=== PATIENT | female | born 1970 | race American Indian/Alaskan Native ===

== ENCOUNTER → 2017-10-01 | Outpatient (CLI) | payer OTHER ==
--- NOTE | 2017-10-01 16:26 | Mammography Report ---
BILATERAL DIGITAL SCREENING MAMMOGRAM with CAD: 10/01/17 07:59:00 CLINICAL: Routine screening. COMPARISON:None available. FINDINGS: The breasts are heterogeneously dense, which may obscure small masses. Scattered bilateral largely punctate calcifications. Bilateral asymmetries require additional imaging.No architectural distortion or suspicious calcifications. IMPRESSION: Bilateral asymmetries requiring further workup. BI-RADS CATEGORY: 0 -- Additional Imaging Evaluation Required RECOMMENDATION: Recall for bilateral spot compression views and bilateral breast ultrasound if needed. ACR BI-RADS MAMMOGRAPHIC CODES: 0 = Needs additional imaging evaluation; 1 = Negative; 2 = Benign; 3 = Probably benign; 4 = Suspicious; 5 = Malignant; 6 = Known biopsy-proven malignancy COMMENT: 1. Dense breast tissue, i.e., adenosis, fibrocystic changes, etc., may obscure an underlying neoplasm. 2. Approximately 10% of cancers are not detected with mammography. 3. A negative mammography report should not delay biopsy if a clinically suspicious mass is present. COMMENT: Patient follow-up letters are generated via our [employer] application.
== END | disposition home or self-care (01) ==
LOC: MAMMO 07:59
PROVIDERS: ATTEND Advanced Practice Midwife
DX: Z12.31 Encounter for screening mammogram for malignant neoplasm of breast (principal)
CPT/HCPCS: 77067

== ENCOUNTER 2018-08-21 07:19 | Emergency (ER) | payer OTHER ==
[2018-08-21 07:33] VITALS: BP 143/84
--- NOTE | 2018-08-21 08:00 | Emergency Department Report ---
Minor Respiratory - HPI Chief Complaint: Upper Respiratory Infection Stated Complaint: GENERAL COLD Time Seen by Provider: 08/21/18 07:55 Duration: 4 Days Minor Respiratory: Yes Rhinorrhea, Yes Sore Throat, Yes Able to Tolerate Fluids, Yes Cough, Yes Chest Pain, Yes Fever, No Ear Pain, No Sick Contacts, No Hemoptysis, No Shortness of Breath Other History: 47-year-old female presents to the emergency room for a 4 day history of cold-like symptoms. Patient admits to sore throat chest pain from cough dizziness or any nose and nasal congestion. Patient reports to try taking TheraFlu severe cough. Patient reports she had a fever 102 last night. ED Review of Systems ROS: Stated complaint: GENERAL COLD Other details as noted in HPI Comment: All other systems reviewed and negative Constitutional: fever ENT: throat pain Respiratory: cough Cardiovascular: denies: chest pain, palpitations Endocrine: no symptoms reported Gastrointestinal: denies: abdominal pain, nausea, diarrhea Genitourinary: denies: urgency, dysuria, discharge Musculoskeletal: denies: back pain, joint swelling, arthralgia Skin: denies: rash, lesions Neurological: denies: headache, weakness, paresthesias Psychiatric: denies: anxiety, depression Hematological/Lymphatic: denies: easy bleeding, easy bruising ED Past Medical Hx - Past Medical History Hx Hypertension: Yes - Social History Smoking Status: Never Smoker - Medications Home Medications: Home Medications Medication Instructions Recorded Confirmed Last Taken Type Benzonatate [Tessalon Perles] 100 mg PO Q8HR #15 capsule 08/21/18 Unknown Rx Cetirizine HCl [Zyrtec 10mg tab] 10 mg PO QDAY #15 tablet 08/21/18 Unknown Rx Fluticasone [Flonase] 1 spray NS QDAY #1 bottle 08/21/18 Unknown Rx Ibuprofen [Motrin 800 MG tab] 800 mg PO Q8HR PRN #30 tablet 08/21/18 Unknown Rx Minor Respiratory Exam - Exam General: Vital signs noted. No distress. Alert and acting appropriately. HEENT: Yes Moist Mucous Membranes, No Pharyngeal Erythema, No Pharyngeal Exudates, No Rhinorrhea, No Conjuctival Injection, No Frontal Tenderness, No Maxillary Tenderness Neck: Yes Supple, No Adenopathy Lungs: Yes Good Air Exchange, No Wheezes, No Ronchi, No Stridor, No Cough, No Labored Respirations, No Retractions, No Use of Accessory Muscles, No Other Abnormal Lung Sounds Heart: Yes Regular, No Murmur Abdomen: Yes Normal Bowel Sounds, No Tenderness, No Peritoneal Signs Skin: No Rash, No Edema Neurologic: Alert and oriented, no deficits. Musculoskeletal: Unremarkable. ED Course Vital Signs 08/21/18 07:22 Temperature 98.1 F Pulse Rate 71 Respiratory 16 Rate Blood Pressure 143/84 O2 Sat by Pulse 100 Oximetry ED Medical Decision Making - Medical Decision Making Patient has been evaluated by this provider a cc. She to 47-year-old male, swelling cold-like symptoms. Patient was placed on Zyrtec's Tessalon Perles Flonase and ibuprofen. Patient is to follow up with her primary care provider. Critical care attestation.: If time is entered above; I have spent that time in minutes in the direct care of this critically ill patient, excluding procedure time. ED Disposition Clinical Impression: Allergic rhinitis Qualifiers: Allergic rhinitis trigger: unspecified Allergic rhinitis seasonality: unspecified Qualified Code(s): J30.9 - Allergic rhinitis, unspecified Disposition: DC- TO HOME OR SELFCARE Is pt being admited?: No Does the pt Need Aspirin: No Condition: Stable Instructions: Allergic Rhinitis (ED), Viral Syndrome (ED) Additional Instructions: Take medications as prescribed. Increase her fluid intake while taking medications. Follow up with her primary care provider if his symptoms persist or gets worse. Prescriptions: Fluticasone [Flonase] 1 spray NS QDAY #1 bottle Ibuprofen [Motrin 800 MG tab] 800 mg PO Q8HR PRN #30 tablet PRN Reason: Pain , Severe (7-10) Benzonatate [Tessalon Perles] 100 mg PO Q8HR #15 capsule Cetirizine HCl [Zyrtec 10mg tab] 10 mg PO QDAY #15 tablet Referrals: GARRISON BURCH MD [Primary Care Provider] - 3-5 Days Forms: Work/School Release Form(ED)
== END 2018-08-21 08:28 | disposition home or self-care (01) ==
LOC: ED 07:19
DX: J30.9 Allergic rhinitis, unspecified (principal); I10 Essential (primary) hypertension; Z79.899 Other long term (current) drug therapy
CPT/HCPCS: 99282

== ENCOUNTER 2020-06-24 10:24 | Emergency (ER) | payer OTHER ==
[2020-06-24 10:44] VITALS: BP 130/76
--- NOTE | 2020-06-24 11:21 | XRay Report ---
CHEST 2 VIEWS INDICATION / CLINICAL INFORMATION: sob. COMPARISON: None available. FINDINGS: SUPPORT DEVICES: None. HEART / MEDIASTINUM: No significant abnormality. LUNGS / PLEURA: No significant pulmonary or pleural abnormality. No pneumothorax. ADDITIONAL FINDINGS: No significant additional findings. IMPRESSION: 1. No acute findings. Signer Name: David Ngo MD Signed: 06/24/2020 11:16 AM Workstation Name: [id number]
--- NOTE | 2020-06-24 11:38 | Emergency Department Report ---
ED Shortness of Breath HPI - General Chief Complaint: Dyspnea/Respdistress Stated Complaint: SHORTNESS OF BREATH Time Seen by Provider: 06/24/20 11:32 Source: patient Mode of arrival: Ambulatory Limitations: No Limitations - History of Present Illness Initial Comments: 49-year-old -[place] female presents to the emergency room complaining of cough and shortness of breath. Patient states that her symptoms started on Saturday she was seen at [facility] urgent care and had a rapid negative Covid test. Patient states on Saturday she follow back up because her symptoms were not improving and she was retested and noted to be positive for Covid. Patient states at that time they placed on erythromycin Flonase prednisone and albuterol inhaler. Patient states that her symptoms are improving some but she still feels short of breath when she does too much. Patient reports a past medical history of hypertension and is currently on amlodipine 10 mg daily. MD Complaint: shortness of breath Onset/Timin -: days(s) Consistency: intermittent Improves With: nothing Worsens With: nothing Known History Of: other (covid) Associated Symptoms: cough - Related Data Home Oxygen Therapy: No Previous Rx's Medication Instructions Recorded Last Taken Type Benzonatate [Tessalon Perles] 100 mg PO Q8HR #15 capsule 08/21/18 Unknown Rx Cetirizine HCl [Zyrtec 10mg tab] 10 mg PO QDAY #15 tablet 08/21/18 Unknown Rx Fluticasone [Flonase] 1 spray NS QDAY #1 bottle 08/21/18 Unknown Rx Ibuprofen [Motrin 800 MG tab] 800 mg PO Q8HR PRN #30 tablet 08/21/18 Unknown Rx Allergies Allergy/AdvReac Type Severity Reaction Status Date / Time No Known Allergies Allergy Verified 08/21/18 07:21 ED Review of Systems ROS: Stated complaint: SHORTNESS OF BREATH Other details as noted in HPI Comment: All other systems reviewed and negative ED Past Medical Hx - Past Medical History Previous Medical History?: Yes Hx Hypertension: Yes (Amlodipine 10 mg) - Surgical History Past Surgical History?: No - Social History Smoking Status: Never Smoker - Medications Home Medications: Home Medications Medication Instructions Recorded Confirmed Last Taken Type Benzonatate [Tessalon Perles] 100 mg PO Q8HR #15 capsule 08/21/18 Unknown Rx Cetirizine HCl [Zyrtec 10mg tab] 10 mg PO QDAY #15 tablet 08/21/18 Unknown Rx Fluticasone [Flonase] 1 spray NS QDAY #1 bottle 08/21/18 Unknown Rx Ibuprofen [Motrin 800 MG tab] 800 mg PO Q8HR PRN #30 tablet 08/21/18 Unknown Rx ED Physical Exam - General Limitations: No Limitations General appearance: alert, in no apparent distress - Head Head exam: Present: atraumatic, normocephalic - Eye Eye exam: Present: normal appearance - ENT ENT exam: Present: mucous membranes moist - Neck Neck exam: Present: normal inspection - Respiratory Respiratory exam: Present: normal lung sounds bilaterally. Absent: respiratory distress - Cardiovascular Cardiovascular Exam: Present: regular rate, normal rhythm. Absent: systolic murmur, diastolic murmur, rubs, gallop - GI/Abdominal GI/Abdominal exam: Present: soft, normal bowel sounds - Extremities Exam Extremities exam: Present: normal inspection - Back Exam Back exam: Present: normal inspection - Neurological Exam Neurological exam: Present: alert, oriented X3 - Psychiatric Psychiatric exam: Present: normal affect, normal mood - Skin Skin exam: Present: warm, dry, intact, normal color. Absent: rash ED Course Vital Signs 06/24/20 10:39 Temperature 98.4 F Pulse Rate 71 Respiratory 18 Rate Blood Pressure 130/76 [Right] O2 Sat by Pulse 98 Oximetry ED Medical Decision Making - Radiology Data Radiology results: report reviewed [facility] [address] [place] [address] XRay Report Signed Patient: OMID CHAVEZ MR#: [id number] : 1970 Acct:[id number] Age/Sex: 49 / F ADM Date: 06/24/20 Loc: ED Attending Dr: Ordering Physician: GEREMIAS NEVAREZ Date of Service: 06/24/20 Procedure(s): XR chest routine 2V Accession Number(s): [id number] cc: GEREMIAS NEVAREZ Fluoro Time In Minutes: CHEST 2 VIEWS INDICATION / CLINICAL INFORMATION: sob. COMPARISON: None available. FINDINGS: SUPPORT DEVICES: None. HEART / MEDIASTINUM: No significant abnormality. LUNGS / PLEURA: No significant pulmonary or pleural abnormality. No pneumothorax. ADDITIONAL FINDINGS: No significant additional findings. IMPRESSION: 1. No acute findings. Signer Name: David Ngo MD Signed: 06/24/2020 11:16 AM Workstation Name: [id number] Transcribed By: SS Dictated By: David Ngo MD Electronically Authenticated By: David Ngo MD Signed Date/Time: 06/24/201115 DD/ 15 TD/TT: Print Cancel - Medical Decision Making 49-year-old -[place] female presents to the emergency room complaining of cough and shortness of breath. Patient states that her symptoms started on Saturday she was seen at [facility] urgent care and had a rapid negative Covid test. Patient states on Saturday she follow back up because her symptoms were not improving and she was retested and noted to be positive for Covid. Patient states at that time they placed on erythromycin Flonase prednisone and albuterol inhaler. Patient states that her symptoms are improving some but she still feels short of breath when she does too much. Patient reports a past medical history of hypertension and is currently on amlodipine 10 mg daily. Chest x-ray shows no acute findings. Patient amatory pulse ox was 98% on room air with a heart rate of 63. Patient shows no distress. She has no coughing and nontoxic in appearance. Discussed with patient to continue quarantine recheck her Covid test on the . Discussed with patient to increase her fluid intake. Patient verbalized understanding Critical care attestation.: If time is entered above; I have spent that time in minutes in the direct care of this critically ill patient, excluding procedure time. ED Disposition Clinical Impression: Cough in adult patient Disposition: DC-01 TO HOME OR SELFCARE Is pt being admited?: No Does the pt Need Aspirin: No Condition: Stable Instructions: Cough, Adult, [id number] Additional Instructions: Chest x-ray is negative. Increase your fluid intake. Try taking [id number] Zyrtec's or Claritin. Repeat Covid test. Referrals: [facility] [Primary Care Provider] - 3-5 Days Forms: Work/School Release Form(ED)
== END 2020-06-24 11:48 | disposition home or self-care (01) ==
LOC: ED 10:24
DX: R05 Cough (principal); R06.02 Shortness of breath; I10 Essential (primary) hypertension; Z79.899 Other long term (current) drug therapy
CPT/HCPCS: 71046; 99283